=== PATIENT | male | born 1985 | race Caucasian/White ===

== ENCOUNTER 2018-03-08 17:45 | Emergency (ER) | payer SELFPAY ==
[~2018-03-08] VITALS: Ht 170.2 cm; Wt 99.8 kg
[~2018-03-08 17:45] MED LIST: ACHD5005 PO; AZIT250T PO; DOXY100C2 PO; LISI-556 PO; NAPR-243 PO
--- OUTSIDE RECORDS SUMMARY | 2018-03-08 17:51 | XMS REPORT | Continuity of Care Document ---
Author Author [facility] Address Unknown Phone Unavailable Allergies Active Description Code Type Severity Reaction Onset Reported/Identified Relationship to Patient Clinical Status Yes NO KNOWN DRUG ALLERGIES NO KNOWN DRUG ALLERG UNKNOWN Yes NO KNOWN DRUG ALLERGIES UNKNOWN NO KNOWN DRUG ALLERG Yes No Known Drug Allergies [id number] Drug Allergy Unknown N/A 05/11/2012 Medications Medication Packaging Start Date Stop Date Route Dosage Sig HYDROCODONE/APAP 5MG/325MG TAB 5 MG/325MG (JHOAN-TAB 5/325) TAB 09/22/2016 09/22/2016 ONCE&0657 Problems Date Dx Coded Attending Type Code Diagnosis Diagnosed By 05/11/2012 Ot 682.7 05/11/2012 Ot 719.47 05/11/2012 Ot 729.5 10/30/2012 PABLO WEISS DO 401.9 UNSPECIFIED ESSENTIAL HYPERTENSION 10/30/2012 PABLO WEISS DO V70.0 ROUTINE GENERAL MEDICAL EXAMINATION AT A HEALTH CARE FACILITY 07/03/2015 JUDITH DONNELLY RUBBER STAMP DIES INSPECTOR Ot I10 07/03/2015 JUDITH DONNELLY RUBBER STAMP DIES INSPECTOR Ot J40 07/03/2015 JUDITH DONNELLY RUBBER STAMP DIES INSPECTOR Ot M79.603 09/23/2016 Shanna Haynes 922.1 CONTUSION OF CHEST WALL 09/23/2016 Shanna Haynes S20.219A CONTUSION OF UNSPECIFIED FRONT WALL OF THORAX, INITIAL ENCOUNTER 01/16/2018 Eun Renteria 274.10 GOUTY NEPHROPATHY, UNSPECIFIED 01/16/2018 Eun Renteria M10.351 GOUT DUE TO RENAL IMPAIRMENT, RIGHT HIP Procedures Code [place] [address] ROUTINE VENIPUNCTURE 10/30/2012 46133 CMP 10/30/2012 82438 TSH 10/30/2012 65843 CBC 10/30/2012 63917 MEASURE BLOOD OXYGEN LEVEL 10/30/2012 Results Test Result Range Uric Acid - 01/12/17 09:45 Uric Acid 7.9 mg/dL 2.6-7.2 Uric Acid - 10/29/16 13:19 Uric Acid 9.2 mg/dL 2.6-7.2 Uric Acid - 01/16/18 11:26 Uric Acid 10.2 mg/dL 2.6-7.2 Encounters ACCT No. Visit Date/Time Discharge Status Pt. Type Provider Facility Loc./Unit Complaint [id number] 10/30/2012 12:37:00 10/30/2012 23:59:59 CLS Outpatient WEISS PABLO Marsha [id number] 01/16/2018 11:25:00 01/16/2018 23:59:00 DIS Outpatient Eun Renteria [id number] 10/29/2016 13:15:00 10/29/2016 23:59:00 DIS Outpatient Chikis Hilliard [id number] 10/07/2016 12:11:00 10/07/2016 23:59:00 DIS Outpatient Arsen Marinelli [id number] 10/01/2016 11:13:00 10/01/2016 23:59:00 DIS Outpatient Chikis Hilliard [id number] 09/22/2016 05:52:00 09/22/2016 07:09:[address] [facility] [place] [id number] 09/22/2016 06:57:56 Document Registration [id number] 07/03/2015 21:03:40 ACT Document Registration [id number] 07/03/2015 20:56:00 07/03/2015 22:29:00 DIS Emergency JUDITH DONNELLY APRN [facility] ER [id number] 05/11/2012 04:36:00 Document Registration
--- NOTE | 2018-03-08 18:51 | Diagnostic Imaging Report ---
INDICATION: Elbow injury with pain and swelling and decreased range of motion. TECHNIQUE: AP, oblique, and lateral views of the left elbow are obtained. FINDINGS: No acute fracture or dislocation is identified. No abnormal lytic or sclerotic focus is seen, and there is no radiopaque foreign body. IMPRESSION: No acute abnormality. Dictated by: Dictated on workstation # [id number]
[2018-03-08] MEDS ORDERED: NS IV 1000 ML 1,000 ML IV ONE (18:58)
[2018-03-08] MEDS ORDERED: COLCHICINE 0.6 MG (COLCRYS) TABLET PO ONE ×2 (19:15→22:00)
[2018-03-08] MEDS ORDERED: KETOROLAC 30 MG/ML VIAL IVP ONE (19:15)
--- NOTE | 2018-03-08 19:21 | ED Upper Extremity ---
General Chief Complaint: Upper Extremity Stated Complaint: L ELBOW SWELLING AND PAIN Nursing Triage Note: TO ROOM WTIH C/O L ELBOW PAIN UNSURE IF INJURY OCCURED WHEN HIT NIGHT STAND HAVING PAIN AND SWELLING IN ELBOW HAS NOT TAKEN ANY OTC PAIN MEDS Nursing Sepsis Screen: No Definite Risk (IVETH ORTIZ) History of Present Illness Date Seen by Provider: Mar 08, 2018 Time Seen by Provider: 18:15 Initial Comments This is a 32 y/o male presenting to the ED by private vehicle. Chief complaint of medial left elbow pain that began last night, 03/07/18. Patient states that he has had increase in pain and swelling over the last day. Pt reports increased stiffness, pain with movement, and hand gripping. Pt denies nausea, vomiting, diarrhea, fever, or chills. Pt reports history of MRSA infection over the left elbow that was treated with oral antibiotics and I&D of an abscess in August of 2016. Patient reports having diffuse poison jose and [place]. He reports possible injury to both elbows after tripping over a toy at 3 AM on 03/06/18, he denied immediate pain after falling or hitting his head. Patient states he has a history of frequent gout in his feet, last episode was one month ago. He does not take prophylactic allopurinol because he states it does not help and makes his pain worse. (IVETH ORTIZ) Allergies and Home Medications Allergies Coded Allergies: No Known Drug Allergies (Unverified , 05/11/12) Home Medications Lisinopril 5 Mg Tablet, 5 MG PO DAILY Prescribed by: JUDITH DONNELLY on 07/03/152225 Sulfamethoxazole/Trimethoprim 1 Each Tablet, 1 EACH PO BID Prescribed by: JEFFREY SPRINGER on 03/08/182206 Patient Home Medication List Home Medication List Reviewed: Yes (IVETH ORTIZ) Constitutional: No chills, No diaphoresis, No fever EENTM: no symptoms reported Respiratory: no symptoms reported Cardiovascular: no symptoms reported Gastrointestinal: No constipation, No diarrhea, No nausea, No vomiting Musculoskeletal: see HPI, joint pain, joint swelling Skin: see HPI (hx of posion jose) (IVETH ORTIZ STUDENT) Past Zthlabt-Utnzse-Wsolix Hx Patient Social History Alcohol Use: Denies Use Recreational Drug Use: No Smoking Status: Never a Smoker Recent Foreign Travel: No Contact w/Someone Who Travel: No Recent Infectious Disease Expo: No (IVETH ORTIZ [employer] JENNIFER) Immunizations Up To Date Tetanus Booster (TDap): Unknown (IVETH ORTIZ [employer]ENNIFER) Past Medical History Surgeries: No Respiratory: No Cardiac: Yes Hypertension Neurological: No Reproductive Disorders: No Gastrointestinal: No Musculoskeletal: No Endocrine: No Cancer: No Psychosocial: No Integumentary: No Blood Disorders: No Adverse Reaction/Blood Tranf: No (IVETH ORTIZ Mandae) Physical Exam Vital Signs Vital Signs - First Documented 03/08/18 17:48 Temp 99.0 Pulse 100 Resp 18 B/P (MAP) 154/97 (116) Pulse Ox 98 O2 Delivery Room Air (JEFFREY BOWIE MD) Vital Signs Capillary Refill : Less Than 3 Seconds (IVETH ORTIZ [employer]ENNIFER) General Appearance: WD/WN, no apparent distress Cardiovascular: normal peripheral pulses, regular rate, rhythm, no edema, no gallop, no JVD, no murmur Respiratory: chest non-tender, lungs clear, normal breath sounds, no respiratory distress, no accessory muscle use Shoulder: normal inspection, non-tender, no evidence of injury, normal ROM Elbow/Forearm: Left, limited ROM (stiffness with ROM to the L elbow, stiffness with flexion/extension, limited passive and active elbow flexion to 100 degrees. 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 Skin was prepped with Betadine and anesthetized with 1 cc of lidocaine. Joint was aspirated from a lateral approach using an 18 gauge needle, with less than 1 cc of fluid obtained. Fluid was sent to lab for evaluation. Patient tolerated the procedure well. Hemostasis was obtained using pressure, skin was cleaned with alcohol and a band-aid was placed over the site. (IVETH ORTIZ STUDENT) Progress/Results/Core Measures Results/Orders Lab Results Laboratory Tests Test 03/08/18 19:15 Range/Units White Blood Count 12.4 H 4.3-11.0 10^3/uL Red Blood Count 4.90 4.35-5.85 10^6/uL Hemoglobin 15.4 13.3-17.7 G/DL Hematocrit 43 40-54 % Mean Corpuscular Volume 88 80-99 FL Mean Corpuscular Hemoglobin 31 25-34 PG Mean Corpuscular Hemoglobin Concent 36 32-36 G/DL Red Cell Distribution Width 13.1 10.0-14.5 % Platelet Count 232 130-400 10^3/uL Mean Platelet Volume 10.2 7.4-10.4 FL Neutrophils (%) (Auto) 66 42-75 % Lymphocytes (%) (Auto) 25 12-44 % Monocytes (%) (Auto) 8 0-12 % Eosinophils (%) (Auto) 1 0-10 % Basophils (%) (Auto) 0 0-10 % Neutrophils # (Auto) 8.2 H 1.8-7.8 X 10^3 Lymphocytes # (Auto) 3.1 1.0-4.0 X 10^3 Monocytes # (Auto) 1.0 0.0-1.0 X 10^3 Eosinophils # (Auto) 0.2 0.0-0.3 10^3/uL Basophils # (Auto) 0.0 0.0-0.1 10^3/uL Erythrocyte Sedimentation Rate 5 0-15 MM/HR Sodium Level 141 135-145 MMOL/L Potassium Level 4.5 3.6-5.0 MMOL/L Chloride Level 108 H 98-107 MMOL/L Carbon Dioxide Level 18 L 21-32 MMOL/L Anion Gap 15 H 5-14 MMOL/L Blood Urea Nitrogen 15 7-18 MG/DL Creatinine 1.11 0.60-1.30 MG/DL Estimat Glomerular Filtration Rate > 60 BUN/Creatinine Ratio 14 Glucose Level 81 70-105 MG/DL Lactic Acid Level 1.49 0.50-2.00 MMOL/L Uric Acid 10.1 H 2.6-7.2 MG/DL Calcium Level 9.7 8.5-10.1 MG/DL Total Bilirubin 0.5 0.1-1.0 MG/DL Aspartate Amino Transf (AST/SGOT) 34 5-34 U/L Alanine Aminotransferase (ALT/SGPT) 47 0-55 U/L Alkaline Phosphatase 112 40-136 U/L C-Reactive Protein High Sensitivity 1.30 H 0.00-0.50 MG/DL Total Protein 9.4 H 6.4-8.2 GM/DL Albumin 4.4 3.2-4.5 GM/DL (JEFFREY BOWIE MD) My Orders Orders - JEFFREY BOWIE MD Elbow, Left, 3 Views (03/08/18 18:30) Cbc With Automated Diff (03/08/18 18:55) Comprehensive Metabolic Panel (03/08/18 18:55) Hs C Reactive Protein (03/08/18 18:55) Erythrocyte Sedimentation Rate (03/08/18 18:55) Saline Lock/Iv-Start (03/08/18 18:55) Blood Culture (03/08/18 18:55) Lactic Acid Analyzer (03/08/18 18:55) Uric Acid (03/08/18 18:55) Ns Iv 1000 Ml (Sodium Chloride 0.9%) (03/08/18 18:58) Ketorolac Injection (Toradol Injection) (03/08/18 19:15) Colchicine Tablet (Colcrys Tablet) (03/08/18 19:15) Lidocaine 1% Inj 20 Ml (Xylocaine 1% Inj (03/08/18 21:15) Colchicine Tablet (Colcrys Tablet) (03/08/18 22:00) Clindamycin 600 Mg/50 Ml Ivpb (Cleocin P (03/08/18 22:00) Sulfamethoxazole/Trimet Ds Tab (Bactrim (03/08/18 22:00) Body Fluid Culture (6/13/18 21:50) (JEFFREY BOWIE MD) Medications Given in ED Current Medications Medications Dose Ordered Sig/Sarah Route Start Time Stop Time Status Last Admin Dose Admin Clindamycin Phosphate/Dextrose 50 ml @ 108 mls/hr ONCE ONCE IV 03/08/18 22:00 03/08/18 22:27 DC 03/08/18 22:15 108 MLS/HR Colchicine 0.6 mg ONCE ONCE PO 03/08/18 22:00 03/08/18 22:01 DC 03/08/18 22:35 0.6 MG Colchicine 1.2 mg ONCE ONCE PO 03/08/18 19:15 03/08/18 19:16 DC 03/08/18 20:08 1.2 MG Ketorolac Tromethamine 15 mg ONCE ONCE IVP 03/08/18 19:15 03/08/18 19:16 DC 03/08/18 19:42 15 MG Lidocaine HCl 20 ml ONCE ONCE INJ 03/08/18 21:15 03/08/18 21:16 DC 03/08/18 21:16 20 ML Trimethoprim/ Sulfamethoxazole 1 ea ONCE ONCE PO 03/08/18 22:00 03/08/18 22:01 DC 03/08/18 22:15 1 EA (JEFFREY BOWIE MD) Vital Signs/I&O 03/08/18 22:53 Temp 98.0 Pulse 100 Resp 18 B/P (MAP) 154/97 (116) Pulse Ox 98 03/09/18 00:00 Intake Total 1050 ml Balance 1050 ml (JEFFREY BOWIE MD) Blood Pressure Mean: 116 Progress Progress Note #1: Time: 18:50 Progress Note After reviewing X-ray, concern of a septic joint or gout is high on differential. Will proceed with septic work up and administer colchicine to see if pain improves. IV NS 1 liter was started. Progress Note #2: Time: 20:30 Progress Note Labs show mixed findings with mild elevation of neutrophils, WBC, and uric acid levels. Discussed with Dr. Maloney via phone for second opinion, he suggests an aspiration of the joint to determine if there is an active infection or gout. Will proceed with aspiration. Progress Note #3: Time: 21:40 Progress Note Patient states his pain has decreased since colchicine was given. Joint aspiration was done with 0.5 cc of clear fluid obtained and sent for evaluation. Discussed findings with Dr. Maloney via phone, he suggested starting antibiotics now. One dose of IV clindamycin and one dose of PO Bactrim was given. (IVETH ORTIZ MED STUDENT) Progress Note : Progress Note Patient was seen and examined along with BRIANNA Giles Student. I agree with her history, exam, and assessment with the following additions. Patient has pain, swelling, heat, and erythema to the left elbow without clear explanation of trauma. Patient does have a history of gout which may be a cause for his symptoms. However, he also notes breaks in the skin due to poison jose last week along with swimming [place]. He also reports history of MRSA over this elbow in the past. For this reason the patient's condition was approached cautiously. Labs were pursued. Lab results were mixed in that he had an elevated WBC and an elevated uric acid. CRP was low. Patient was mildly tachycardic with a heart rate around 100. He was given a liter of IV fluids. Dr. Maloney was consulted and agreed that the etiology was likely gout but the presence of septic arthritis cannot be completely ruled out without aspiration. He recommended attempting aspiration in the ER. Aspiration under sterile technique was performed which yielded 0.5 mL of clear synovial fluid. The appearance of clear fluid was reassuring. After aspiration I discussed the case with Dr. Maloney again. He advises erring on the side of caution and treating with antibiotics in addition to treating gout. Patient was given colchicine 1.2 mg followed by a 0.6 mg dose. He was also given a dose of Toradol. This improved his pain significantly. Synovial fluid was sent to the lab for processing. Unfortunately there was not enough volume to perform gram staining. However, cultures are being plated. Patient received a dose of clindamycin and a dose of Bactrim in the ER. Patient was ultimately discharged on oral Bactrim. He was advised to follow a gout diet and to follow-up with Dr. Maloney if symptoms do not rapidly resolve. Exam is as follows: Gen.: Alert, oriented, no acute distress HEENT: Normocephalic and atraumatic, mucous membranes moist Heart: Regular rhythm, slightly tachycardic Lungs: Clear to auscultation bilaterally with normal effort Extremities: Left elbow is erythematous and edematous with the focus of tenderness, heat, and edema being over the medial epicondyle. There is no obvious abscess and no drainage. Active and passive range of motion was significantly limited due to stiffness. Skin: Generalized erythema of the left upper extremity from resting his arm on the window of his vehicle but there is increased erythema around the medial elbow. Neuro: Alert, oriented, no focal deficits (JEFFREY BOWIE MD) Diagnostic Imaging Diagonstic Imaging: Xray Plain Films/CT/US/NM/MRI: elbow Comments X-ray reviewed by me, see report below: NAME: MEGHAN HERNANDES [facility] REC#: [id number] PT STATUS: REG ER : 1985 PHYSICIAN: JEFFREY BOWIE MD ADMIT DATE: 03/08/18/ER Signed Date of Exam: 03/08/18 ELBOW, LEFT, 3 VIEWS INDICATION: Elbow injury with pain and swelling and decreased range of motion. TECHNIQUE: AP, oblique, and lateral views of the left elbow are obtained. FINDINGS: No acute fracture or dislocation is identified. No abnormal lytic or sclerotic focus is seen, and there is no radiopaque foreign body. IMPRESSION: No acute abnormality. Dictated by: Dictated on workstation # [id number] Dict: 03/08/181848 Trans: 03/08/181922 Interpreted by: CHITO HORTON MD Electronically signed by: CHITO HORTON MD 03/08/181922 (IVETH ORTIZ MED STUDENT) Departure Impression Primary Impression: Acute gout Qualified Codes: M10.9 - Gout, unspecified Additional Impressions: Leukocytosis Qualified Codes: D72.829 - Elevated white blood cell count, unspecified Left elbow pain Disposition: 01 HOME, SELF-CARE Condition: Improved Departure-Patient Inst. Decision time for Depature: 22:00 (JEFFREY BOWIE MD) Referrals: CHERYL ACEVEDO (PCP) Primary Care Physician PEYTON MALONEY DO Patient Instructions: Gout, Lifestyle Changes to Manage Gout Add. Discharge Instructions: Drink plenty of clear liquids. Your urine and should be light yellow to clear in color if you're hydrating well enough. Follow a gout diet. Complete your antibiotics as prescribed. Follow-up with Dr. Maloney if symptoms have not resolved in 48 hours. Return to the emergency room if you develop worsening symptoms, especially if you develop fevers greater than 100. Take ibuprofen up to 600 mg every 6 hours as needed for initial management of pain. Add Tylenol (acetaminophen) up to 1000 mg every 6 hours as needed for additional treatment of pain if needed. Follow-up with your primary care provider within the next week to discuss further management of gout. All discharge instructions reviewed with patient and/or family. Voiced understanding. Scripts Sulfamethoxazole/Trimethoprim (Bactrim Ds Tablet) 1 Each Tablet 1 EACH PO BID, #20 TAB Prov: JEFFREY BOWIE MD 03/08/18 Copy Copies To 1: PEYTON MALONEY MCKENZIE MED STUDENT Mar 08, 2018 19:21 JEFFREY BOWIE MD Mar 08, 2018 22:08
[2018-03-08 19:26] LABS: BASOPHILS % (AUTO) 0 % (0-10); EOSINOPHILS # (AUTO) 0.2 10^3/uL (0.0-0.3); EOSINOPHILS % (AUTO) 1 % (0-10); HEMATOCRIT 43 % (40-54); HEMOGLOBIN 15.4 G/DL (13.3-17.7); LYMPHOCYTES # (AUTO) 3.1 X 10^3 (1.0-4.0); LYMPHOCYTES % (AUTO) 25 % (12-44); MEAN CORPUSCULAR HEMOGLOBIN 31 PG (25-34); MEAN CORPUSCULAR HGB CONC 36 G/DL (32-36); MEAN CORPUSCULAR VOLUME 88 FL (80-99); MEAN PLATELET VOLUME 10.2 FL (7.4-10.4); MONOCYTES % (AUTO) 8 % (0-12); NEUTROPHILS # (AUTO) 8.2 X 10^3 (1.8-7.8); NEUTROPHILS % (AUTO) 66 % (42-75); PLATELET COUNT 232 10^3/uL (130-400); RED CELL DISTRIBUTION WIDTH 13.1 % (10.0-14.5); WHITE BLOOD COUNT 12.4 10^3/uL (4.3-11.0)
[2018-03-08 19:45] LABS: ALANINE AMINOTRANSFERASE 47 U/L (0-55); ALBUMIN 4.4 GM/DL (3.2-4.5); ALKALINE PHOSPHATASE 112 U/L (40-136); BILIRUBIN,TOTAL 0.5 MG/DL (0.1-1.0); BUN/CREATININE RATIO 14; CALCIUM 9.7 MG/DL (8.5-10.1); CARBON DIOXIDE 18 MMOL/L (21-32); CHLORIDE 108 MMOL/L (98-107); CREATININE SERUM 1.11 MG/DL (0.60-1.30); GFR ESTIMATED > 60; GLUCOSE 81 MG/DL (70-105); POTASSIUM 4.5 MMOL/L (3.6-5.0); SODIUM 141 MMOL/L (135-145); TOTAL PROTEIN 9.4 GM/DL (6.4-8.2); URIC ACID 10.1 MG/DL (2.6-7.2)
[2018-03-08 19:46] LABS: ERYTHROCYTE SEDIMENTATION RATE 5 MM/HR (0-15)
[2018-03-08] MEDS ORDERED: LIDOCAINE 1% INJ 20 ML 20 ML VIAL INJ ONE (21:15)
[2018-03-08] MEDS ORDERED: TRIM/SULFAMETH 160/800 (SEPTRA DS) TAB PO ONE (22:00)
[2018-03-08] MEDS ORDERED: CLINDAMYCIN 600 MG/50 ML IVPB 50 ML IV ONE (22:00)
[2018-03-08] MEDS ORDERED: SULF1TAB35 PO (22:07)
[2018-03-08 22:53] VITALS: BP 154/97
== END 2018-03-08 22:53 | disposition home or self-care (01) ==
LOC: EDUNIT# 17:45 → ER 17:46
DX: M25.522 Pain in left elbow (principal); M10.9 Gout, unspecified; D72.829 Elevated white blood cell count, unspecified; I10 Essential (primary) hypertension; Z86.14 Personal history of Methicillin resistant Staphylococcus aureus infection
CPT/HCPCS: 36415; 73080; 80053; 83605; 84550; 85025; 85652; 86141; 87040; 87070; 87077; 87205; 96361; 96365; 96375